=== PATIENT | male | born 1970 | race Caucasian/White ===

== ENCOUNTER 2020-02-24 15:30 | Outpatient (CLI) | payer SELFPAY ==
[2020-02-24 17:15] LABS: Creatine Phosphokinase 83 U/L (39-308)
[2020-02-25 13:30] LABS: Lyme AB Screen <0.90 index
[2020-02-27 16:06] LABS: E. Chaffeensis AB IGG <1:64; E. Chaffeensis AB IGM <1:20
[2020-02-29 16:49] LABS: RMSF IGG NOT DETECTED; RMSF IGM NOT DETECTED
== END 2020-02-24 15:31 | disposition home or self-care (01) ==
LOC: LAB 15:31
PROVIDERS: Visit Provider Nurse Practitioner Family
DX: M25.50 Pain in unspecified joint (principal); W57.XXXA Bitten or stung by nonvenomous insect and other nonvenomous arthropods, initial encounter
CPT/HCPCS: 82550; 86618; 86666; 86757